=== PATIENT | female | born 1990 | race Caucasian/White ===

== ENCOUNTER 2017-09-20 10:53 | Emergency (ER) | payer OTHER ==
[~2017-09-20] VITALS: Ht 162.6 cm; Wt 59.1 kg
[2017-09-20] MEDS ORDERED: IBUPROFEN 800 MG TABLET PO ONE (12:15)
[2017-09-20 13:19] VITALS: BP 120/74
== END 2017-09-20 13:21 | disposition home or self-care (01) ==
LOC: EMS 10:54
DX: S93.491A Sprain of other ligament of right ankle, initial encounter (principal); Z98.890 Other specified postprocedural states; W18.40XA Slipping, tripping and stumbling without falling, unspecified, initial encounter; Y93.89 Activity, other specified; Y92.89 Other specified places as the place of occurrence of the external cause; Y99.8 Other external cause status
CPT/HCPCS: 29515; 99284